=== PATIENT | male | born 1970 | race Caucasian/White ===

== ENCOUNTER 2025-08-13 10:24 | Emergency (ER) | payer SELFPAY ==
[2025-08-13 10:35] VITALS: BP 134/90; PULSE 73; RESP 18; TEMP 36.4; O2SAT 100
--- NOTE | 2025-08-13 10:41 | ED.SOB ---
HPI - SOB/Dyspnea General Stated Complaint: SOB Time Seen by Provider: 08/13/25 10:47 Source: patient Mode of arrival: ambulatory Limitations: no limitations History of Present Illness HPI Narrative: 55-year-old male presents with concern for shortness of breath. He reports 2 distinct episodes lower chest/upper abdominal pain that causes him to feel short of breath and not be able to speak because of the shortness of breath. He reports the pain radiates to his back. He reports the episodes last about 15-20 minutes when the pain goes away he still has a painful sensation in his epigastric area. He reports the 1st episode happened on night the 2nd episode happened today. He denies any fever, body aches, chills, sweats. He denies current shortness of breath. He denies any cardiac or respiratory history. He reports the sensation of having to have a bowel movement, but when he tries to go he does not need to MD elicited complaint: shortness of breath Related Data Home Medications ?Medication ?Instructions ?Recorded ?Confirmed ?Last Taken ?Type No Home Medications 08/13/25 08/13/25 Unknown History Allergies Allergy/AdvReac Type Severity Reaction Status Date / Time No Known Drug Allergies Allergy none Verified 08/13/25 11:07 Review of Systems Review of Systems: CONSTITUTIONAL: Denies malaise, chills, sweats, or fever. ENT: Denies rhinorrhea, congestion, sinus pain, otalgia or sore throat. CARDIOVASCULAR: Reports epigastric chest pain. Denies palpitations or edema. RESPIRATORY: Denies cough. Reports 2 episodes dyspnea. GASTROINTESTINAL: Reports epigastric abdominal pain, upper abdominal pain. Denies nausea, vomiting. Reports 1 episode of diarrhea today MUSCULOSKELETAL: Reports pain that radiates to his back. Denies myalgia. NEUROLOGIC: Denies numbness, weakness, or headache. PSYCHIATRIC: Denies anxiety All systems reviewed & are unremarkable except as noted in HPI and below PMFSH Comments At time of signature, agree with nursing past medical, surgical, social and family history. There is no relevant family history pertinent to the presenting complaint Exam Narrative: GENERAL: Nontoxic-appearing and in no acute distress. HEAD: Normocephalic, atraumatic. EYES: PERRLA, sclera clear, and EOMI. ENT: Nares clear. Mucous membranes moist. NECK: Supple.No jugular venous distension CHEST: No respiratory distress. Clear to auscultation. No bony deformities, no asymmetry. Speaks in full sentences. HEART: Regular rate and rhythm. No murmur heard. Normal peripheral pulses. ABDOMEN: Soft, nontender, nondistended, normal active bowel sounds, no palpable masses. EXTREMITIES: Normal range of motion. No edema. Normal strength and sensation. SKIN: Warm, dry, no visible rash. NEURO: Alert and oriented x3. No focal deficits. Cranial nerves II through XII grossly intact PSYCH: Normal mood and affect Course Course Emergency Course: Patient is aware of, understands and agrees to be transferred to the emergency room, patient is refusing transfer via EMS (AMA signed), his is driving him. Patient agrees to proceed directly to the emergency department. Portions of this record may have been created with voice recognition software Level of Care: [facility] Visit Vital Signs Vital signs: Reviewed. Transfer Transfered to: [place] Transportation: Other (Private vehicle, refused EMS) Transfer rationale: Chest pain, abnormal EKG Accepting physician: Jourdan Transfer comments: Patient refused EMS, sign AMA MDM - SOB/Dyspnea MDM Narrative Medical decision making narrative: I evaluated this patient in the [facility] care. History is obtained from patient who is an independent historian and physical exam was performed.? Patient is non-toxic appearing and is in no distress. Patient agrees to transfer to emergency room ECG Data EKG #1: ECG completion date: 08/13/25 ECG completion time: 10:55 Prior ECG tracings: not available for review Interpretation: Rate 55, IA interval 203, QRS duration 95, QT 416, QTC 4 0 for, septal OK of indeterminate age in V1/V2 EKG Interpretation: bradycardia Critical Care Time Critical Care Time Critical Care Time: No Discharge Plan Discharge Clinical Impression: Shortness of breath Patient Disposition: Acute Care Hospital Condition: Stable Patient Language: Wolof Follow-up/Referrals: PHYSICIAN,ANGLE FURNACEMAN [Primary Care Provider, Internal Medicine] Time of Disposition: 11:15
--- NOTE | 2025-08-13 10:43 | ECG_ITS ---
Test Date: 2025-08-13 10:55:08 Measurements Intervals [place] Rate: 55 P: 33 WV: 203 QRS: 19 QRSD: 95 T: 12 QT: 416 QTc: 398 Interpretive Statements SINUS BRADYCARDIA SEPTAL MYOCARDIAL INFARCTION [40+ ms Q WAVE IN V1/V2], OF INDETERMINATE AGE No previous ECG available for comparison Electronically Signed On 08-13-2025 11:24:49 [employer]IT[employer] by Fidencio Lopez M.D.
== END 2025-08-13 11:20 | disposition short-term general hospital (02) ==
PROVIDERS: Emergency Provider Nurse Practitioner
DX: R06.02 Shortness of breath (principal)
CPT/HCPCS: 93005; 99213; G0463